=== PATIENT | male | born 1995 | race Caucasian/White ===

== ENCOUNTER → 2016-07-26 | Outpatient (CLI) | payer BC, MEDICAID ==
[2016-07-26 19:06] VITALS: BP 136/74
== END ==
LOC: MHUC 17:54
PROVIDERS: ATTEND Physician Assistant
DX: B36.0 Pityriasis versicolor (principal); R31.9 Hematuria, unspecified
CPT/HCPCS: 99213

== ENCOUNTER → 2016-07-26 | Outpatient (CLI) | payer BC, MEDICAID ==
[2016-07-26 19:05] LABS: ALBUMIN 5.3 g/dL (3.4-5.0); ANION GAP 16.5 MEQ/L (3-15); CALCULATED IONIZED CALCIUM 4.2 mg/dL (3.8-4.6); TOTAL PROTEIN 7.9 g/dL (6.4-8.5)
[2016-07-26 19:22] LABS: BASOPHILS % (AUTO) 1 % (0-2); EOSINOPHILS % (AUTO) 0 % (0-4); LYMPHOCYTES # (AUTO) 1.3 X10^3; MEAN CORPUSCULAR VOLUME 84 FL (80-100); MEAN PLATELET VOLUME 12.3 FL (6.0-9.5); MONOCYTES # (AUTO) 0.6 X10^3; MONOCYTES % (AUTO) 9 % (3-11); NEUTROPHILS # (AUTO) 4.8 X10^3; NEUTROPHILS % (AUTO) 71 % (51-67); PLATELET COUNT 203 10^3uL (150-450); WHITE BLOOD COUNT 6.79 10^3uL (4.0-11.0)
[2016-07-26 19:31] LABS: MEAN CORPUSCULAR HGB CONC 37.1 g/dL (31.0-37.0)
== END ==
LOC: LAB 18:37
PROVIDERS: ATTEND Physician Assistant
DX: R35.0 Frequency of micturition (principal)
CPT/HCPCS: 36415; 80053; 85025

== ENCOUNTER → 2016-10-19 | Emergency (ER) | payer BC, MEDICAID ==
[~2016-10-19] VITALS: Ht 177.8 cm; Wt 63.6 kg
[~2016-10-19] MED LIST: AMOX1TAB12 PO; HYDR-33 PO; KETOROLAC 60 MG/2 ML (TORADOL) VIAL IM ONE; SULF1TAB35 PO; TERB12CR3 TOP
--- OUTSIDE RECORDS SUMMARY | 2016-10-19 16:18 | XMS REPORT | Continuity of Care Document ---
Author Author [facility] Address Unknown Phone Unavailable Allergies Active Description Code Type Severity Reaction Onset Reported/Identified Relationship to Patient Clinical Status Yes No Known Drug Allergies [id number] Drug Allergy Unknown N/ A 12/17/2015 Medications Problems Date Dx Coded Attending Type Code Diagnosis Diagnosed By 10/12/2015 AIXA FUNES Ot J01.10 ACUTE FRONTAL SINUSITIS, UNSPECIFIED 10/13/2015 AIXA FUNES Ot J01.10 ACUTE FRONTAL SINUSITIS, UNSPECIFIED 11/23/2015 AIXA FUNES Ot J01.10 ACUTE FRONTAL SINUSITIS, UNSPECIFIED 12/17/2015 SHANAE RIVERS MD Ot S21.212A LAC W/O FB OF L BK WL OF THORAX W/O PENE 12/17/2015 SHANAE RIVERS MD Ot W01.10XA FALL SAME LEV FROM SLIP/TRIP W STRIKE AG 12/17/2015 SHANAE RIVERS MD Ot Y92.[address] [facility] [address] IN [facility] NON[facility] ( PRIVATE 12/19/2015 JUDY HADDAD MD Ot F17.210 NICOTINE DEPENDENCE, CIGARETTES, UNCOMPL 12/19/2015 JUDY HADDAD MD Ot S21.432A PNCTR W/O FB OF L BK WL OF THORAX W PENE 12/19/2015 JUDY HADDAD MD Ot S27.1XXA TRAUMATIC HEMOTHORAX, INITIAL ENCOUNTER 12/19/2015 JUDY HADDAD MD Ot W18.39XA OTHER FALL ON SAME LEVEL, INITIAL ENCOUN 12/22/2015 SHANAE RIVERS MD Ot S21.212A LAC W/O FB OF L BK WL OF THORAX W/O PENE 12/22/2015 SHANAE RIVERS MD Ot W01.10XA FALL SAME LEV FROM SLIP/TRIP W STRIKE AG 12/22/2015 SHANAE RIVERS MD Ot Y92.[address] [facility] [address] IN [facility] NON[facility] ( PRIVATE 12/28/2015 JUDY HADDAD MD Ot S27.1XXA TRAUMATIC HEMOTHORAX, INITIAL ENCOUNTER 12/30/2015 JUDY HADDAD MD Ot S27.1XXA TRAUMATIC HEMOTHORAX, INITIAL ENCOUNTER 01/02/2016 JUDY HADDAD MD Ot S27.1XXA TRAUMATIC HEMOTHORAX, INITIAL ENCOUNTER 01/02/2016 JUDY HADDAD MD Ot X58.XXXA EXPOSURE TO OTHER SPECIFIED FACTORS, INI 01/06/2016 Tono Bailon MD Ot J90 PLEURAL EFFUSION, NOT ELSEWHERE CLASSIFI 01/06/2016 Tono Bailon MD Ot R07.2 PRECORDIAL PAIN 01/09/2016 JUDY HADDAD MD, Ot S27.1XXA TRAUMATIC HEMOTHORAX, INITIAL ENCOUNTER 01/09/2016 JUDY HADDAD MD Ot X58.XXXA EXPOSURE TO OTHER SPECIFIED FACTORS, INI 01/12/2016 Tono Bailon MD, Ot J90 PLEURAL EFFUSION, NOT ELSEWHERE CLASSIFI 01/12/2016 Tono Bailon MD Ot R07.2 PRECORDIAL PAIN 01/14/2016 JUDY HADDAD MD Ot S27.1XXA TRAUMATIC HEMOTHORAX, INITIAL ENCOUNTER 01/14/2016 JUDY HADDAD MD, Ot S27.1XXA TRAUMATIC HEMOTHORAX, INITIAL ENCOUNTER 01/14/2016 JUDY HADDAD MD Ot X58.XXXA EXPOSURE TO OTHER SPECIFIED FACTORS, INI 01/19/2016 AIXA FUNES Ot J01.10 ACUTE FRONTAL SINUSITIS, UNSPECIFIED 01/19/2016 JUDY HADDAD MD, Ot S27.1XXA TRAUMATIC HEMOTHORAX, INITIAL ENCOUNTER 01/19/2016 JUDY HADDAD MD Ot S27.1XXA TRAUMATIC HEMOTHORAX, INITIAL ENCOUNTER 01/19/2016 JUDY HADDAD MD Ot X58.XXXA EXPOSURE TO OTHER SPECIFIED FACTORS, INI 01/19/2016 Tono Bailon MD Ot J90 PLEURAL EFFUSION, NOT ELSEWHERE CLASSIFI 01/19/2016 Tono Bailon MD Ot R07.2 PRECORDIAL PAIN 01/24/2016 Tono Bailon MD Ot J90 PLEURAL EFFUSION, NOT ELSEWHERE CLASSIFI 01/24/2016 Tono Bailon MD Ot R07.2 PRECORDIAL PAIN 03/08/2016 AIXA FUNES Ot J01.10 ACUTE FRONTAL SINUSITIS, UNSPECIFIED 03/08/2016 BOO [facility], JUDY Mars Ot S27.1XXA TRAUMATIC HEMOTHORAX, INITIAL ENCOUNTER 03/08/2016 JUDY HADDAD MD Ot S27.1XXA TRAUMATIC HEMOTHORAX, INITIAL ENCOUNTER 03/08/2016 JUDY HADDAD MD Ot X58.XXXA EXPOSURE TO OTHER SPECIFIED FACTORS, INI 03/08/2016 [employer], Tono Chan Ot J90 PLEURAL EFFUSION, NOT ELSEWHERE CLASSIFI 03/08/2016 Tono Bailon MD Ot R07.2 PRECORDIAL PAIN 03/29/2016 Tono Bailon MD Ot J90 PLEURAL EFFUSION, NOT ELSEWHERE CLASSIFI 03/29/2016 Tnoo Bailon MD Ot R07.2 PRECORDIAL PAIN 07/26/2016 Tono Bailon MD, Ot J90 PLEURAL EFFUSION, NOT ELSEWHERE CLASSIFI 07/26/2016 Tono Bailon MD Ot R07.2 PRECORDIAL PAIN 07/31/2016 SELCORBY WONGICA Jerad Ot R35.0 FREQUENCY OF MICTURITION 07/31/2016 CORBY FUNESICA Jerad Ot B36.0 PITYRIASIS VERSICOLOR 07/31/2016 CORBY FUNESICA D Ot R31.9 HEMATURIA, UNSPECIFIED 08/08/2016 Tono Bailon MD Ot J90 PLEURAL EFFUSION, NOT ELSEWHERE CLASSIFI 08/08/2016 Tono Bailon MD Ot R07.2 PRECORDIAL PAIN 08/08/2016 EFRA NOEL AIXA D Ot B36.0 PITYRIASIS VERSICOLOR 08/08/2016 CORBY FUNESICA D Ot R31.9 HEMATURIA, UNSPECIFIED 08/08/2016 Tono Bailon MD Ot J90 PLEURAL EFFUSION, NOT ELSEWHERE CLASSIFI 08/08/2016 Tono Bailon MD Ot R07.2 PRECORDIAL PAIN 08/08/2016 SELCORBY WONGICA D Ot B36.0 PITYRIASIS VERSICOLOR 08/08/2016 EFRA NOEL AIXA D Ot R31.9 HEMATURIA, UNSPECIFIED 08/08/2016 SELAZEB NOEL AIXA D Ot R35.0 FREQUENCY OF MICTURITION 08/08/2016 SELZER PA, AIXA D Ot B36.0 PITYRIASIS VERSICOLOR 08/08/2016 SELZER PA, AIXA D Ot R31.9 HEMATURIA, UNSPECIFIED 08/08/2016 SELZER PA, AIXA D Ot R35.0 FREQUENCY OF MICTURITION 08/09/2016 SELZER PA, AIXA D Ot B36.0 PITYRIASIS VERSICOLOR 08/09/2016 SELZER PA, AIXA D Ot R31.9 HEMATURIA, UNSPECIFIED 08/09/2016 SELZER PA, AIXA D Ot R35.0 FREQUENCY OF MICTURITION 08/16/2016 SELZER PA, AIXA D Ot B36.0 PITYRIASIS VERSICOLOR 08/16/2016 SELZER PA, AIXA D Ot R31.9 HEMATURIA, UNSPECIFIED 08/29/2016 SELZER PA, AIXA D Ot B36.0 PITYRIASIS VERSICOLOR 08/29/2016 SELZER BERT, AIXA D Ot R31.9 HEMATURIA, UNSPECIFIED 09/04/2016 SELZER BERT, AIXA D Ot R35.0 FREQUENCY OF MICTURITION 09/11/2016 EFRA NOEL AIXA D Ot J01.10 ACUTE FRONTAL SINUSITIS, UNSPECIFIED 09/11/2016 JUDY HADDAD MD Ot S27.1XXA TRAUMATIC HEMOTHORAX, INITIAL ENCOUNTER 09/11/2016 JUDY HADDAD MD Ot S27.1XXA TRAUMATIC HEMOTHORAX, INITIAL ENCOUNTER 09/11/2016 JUDY HADDAD MD Ot X58.XXXA EXPOSURE TO OTHER SPECIFIED FACTORS, INI 09/11/2016 [employer], Tono Chan Ot J90 PLEURAL EFFUSION, NOT ELSEWHERE CLASSIFI 09/11/2016 [employer], Tono Chan Ot R07.2 PRECORDIAL PAIN 09/11/2016 EFRA NOEL AIXA D Ot B36.0 PITYRIASIS VERSICOLOR 09/11/2016 JESSICAZER BERT AIXA D Ot R31.9 HEMATURIA, UNSPECIFIED 09/11/2016 SELZER BERT AIXA D Ot R35.0 FREQUENCY OF MICTURITION 09/13/2016 EFRA NOEL AIXA D Ot J01.10 ACUTE FRONTAL SINUSITIS, UNSPECIFIED 09/13/2016 JUDY HADDAD MD Ot S27.1XXA TRAUMATIC HEMOTHORAX, INITIAL ENCOUNTER 09/13/2016 JUDY HADDAD MD Ot S27.1XXA TRAUMATIC HEMOTHORAX, INITIAL ENCOUNTER 09/13/2016 JUDY HADDAD MD Ot X58.XXXA EXPOSURE TO OTHER SPECIFIED FACTORS, INI 09/13/2016 [employer], Tono Chan Ot J90 PLEURAL EFFUSION, NOT ELSEWHERE CLASSIFI 09/13/2016 Tono Bailon MD Ot R07.2 PRECORDIAL PAIN 09/13/2016 AIXA FUNES Ot B36.0 PITYRIASIS VERSICOLOR 09/13/2016 AIXA FUNES Ot R31.9 HEMATURIA, UNSPECIFIED 09/13/2016 AIXA FUNES Ot R35.0 FREQUENCY OF MICTURITION Procedures Code Description Performed By Performed On [id number] DRAINAGE OF L PLEURAL CAV WITH DRAIN DEV 12/17/2015 Results Test Result Range Complete blood count (CBC) with automated white blood cell (WBC) differential - 12/29/15 13:16 Blood automated leukocyte count 8.00 4.0 -11.0 Erythrocytes 3.28 4.50-5.50 12.0-16.0;g/dL 10.0 13.5-17.0 Hematocrit 28.80 39.00-50.00 Automated erythrocyte mean corpuscular volume 88 80-100 Mean corpuscular hemoglobin (MCH) determination 30.5 26.0-34.0 Automated erythrocyte mean corpuscular hemoglobin concentration measurement ( mass/volume) 34.7 31.0-37.0 Erythrocyte distribution width 12.6 11.8 -15.6 Automated blood platelet count 387 150- 450 Automated blood platelet mean volume measurement 10.1 6.0-9.5 Automated neutrophil percentage 66 51- 67 Lymphocytes/100 leukocytes 19 20-46 Automated monocyte percentage 10 3-11 Eosinophil count auto 4 0-4 Automated basophil percentage 1 0-2 Automated blood neutrophil count 5.2 Blood lymphocytes count (number/volume) 1.5 Automated blood monocyte count 0.8 Blood absolute eosinophil count 0.3 Basophils 0.1 Comprehensive metabolic panel - 07/26/16 18:41 Sodium measurement 103 70-110 CARBON DIOXIDE 28 22-29 Serum or plasma anion gap 16.5 3-15 BLOOD UREA NITROGEN 11 7-18 CREATININE SERUM 0.88 0.8-1.5 Brucella species antibody panel (IgG, IgM) 13 10-20 Estimated glomerular filtration rate (GFR) 133.6 Estimated glomerular filtration rate (GFR) non- 110.4 OSMOLALITY,CALCULATED 277 280-300 CALCIUM 10.2 8.8-10.8 Calculated ionized calcium measurement 4.2 3.8-4.6 BILIRUBIN,TOTAL 0.8 0.1-1.0 Serum or plasma alkaline phosphatase measurement 68 38-126 ASPARTATE AMINO TRANSFERASE 19 15-37 ALANINE AMINOTRANSFERASE 23 30-65 Serum or plasma total protein measurement 7.9 6.4-8.5 Serum or plasma albumin measurement 5.3 3.4-5.0 Serum or plasma albumin/globulin mass ratio 2.038 1.1-1.8 Complete blood count (CBC) with automated white blood cell (WBC) differential - 07/26/16 18:41 Blood automated leukocyte count 6.79 4.0 -11.0 Erythrocytes 5.33 4.50-5.50 12.0-16.0;g/dL 16.5 13.5-17.0 Hematocrit 44.50 39.00-50.00 Automated erythrocyte mean corpuscular volume 84 80-100 Mean corpuscular hemoglobin (MCH) determination 31.0 26.0-34.0 Automated erythrocyte mean corpuscular hemoglobin concentration measurement ( mass/volume) 37.1 31.0-37.0 Erythrocyte distribution width 12.7 11.8 -15.6 Automated blood platelet count 203 150- 450 Automated blood platelet mean volume measurement 12.3 6.0-9.5 Automated neutrophil percentage 71 51- 67 Lymphocytes/100 leukocytes 19 20-46 Automated monocyte percentage 9 3-11 Eosinophil count auto 0 0-4 Automated basophil percentage 1 0-2 Automated blood neutrophil count 4.8 Blood lymphocytes count (number/volume) 1.3 Automated blood monocyte count 0.6 Blood absolute eosinophil count 0.0 Basophils 0.0 Encounters ACCT No. Visit Date/Time Discharge Status Pt. Type Provider Facility Loc./Unit Complaint [id number] 12/17/2015 18:56:00 2015 17:32:00 DIS Inpatient BOO NGO, JUDY [facility] MED/SURG HEMOTHORAX, CHEST TUBE PLACEMENT [id number] 12/17/2015 02:48:00 2015 04:40:00 DIS Emergency SILVESTRE NGO, SHANAE [facility] ED [id number] 10/19/2016 16:15:00 ACT Emergency MARCELINO FARIAS, [facility] ED [id number] 10/19/2016 15:49:00 ACT Outpatient EFRA NOEL [facility] [id number] 07/26/2016 18:37:00 ACT Outpatient EFRA NOEL [facility] LAB [id number] 07/26/2016 17:54:00 ACT Outpatient EFRA NOEL [facility] [id number] 01/02/2016 14:31:00 ACT Outpatient Uvaldo NGO, [facility] RAD [id number] 12/29/2015 13:12:00 ACT Outpatient BOO NGO, [facility] LAB [id number] 12/23/2015 12:09:00 ACT Outpatient BOO NGO, [facility] RAD [id number] 10/10/2015 12:51:00 ACT Outpatient EFRA NOEL [facility]
--- OUTSIDE RECORDS SUMMARY | 2016-10-19 16:19 | XMS REPORT | Continuity of Care Document ---
Author Author [facility] Address Unknown Phone Unavailable Allergies Active Description Code Type Severity Reaction Onset Reported/Identified Relationship to Patient Clinical Status Yes No Known Drug Allergies [id number] Drug Allergy Unknown N/ A 12/17/2015 Medications [...] AG 12/17/2015 SHANAE RIVERS MD Ot Y92.[address] [facility] [address] IN [facility] NON[facility] ( PRIVATE 12/19/2015 JUDY HADDAD MD [...] AG 12/22/2015 SHANAE RIVERS MD Ot Y92.[address] [facility] [address] IN [facility] NON[facility] ( PRIVATE 12/28/2015 JUDY HADDAD MD [...] S27.1XXA TRAUMATIC HEMOTHORAX, INITIAL ENCOUNTER 03/08/2016 JUDY AHDDAD MD Ot S27.1XXA TRAUMATIC HEMOTHORAX, INITIAL ENCOUNTER 03/08/2016 JUDY HADDAD MD Ot X58.XXXA EXPOSURE TO OTHER SPECIFIED FACTORS, INI 03/08/2016 [employer], Tono Chan Ot J90 PLEURAL EFFUSION, NOT ELSEWHERE CLASSIFI 03/08/2016 Tono Bailon MD Ot R07.2 PRECORDIAL PAIN 03/29/2016 Tono Bailon MD Ot J90 PLEURAL EFFUSION, NOT ELSEWHERE CLASSIFI 03/29/2016 Tono Bailon MD Ot R07.2 PRECORDIAL PAIN 07/26/2016 [...] Procedures Code Description Performed By Performed On [id number] DRAINAGE OF L PLEURAL CAV WITH DRAIN [...] Status Pt. Type Provider Facility Loc./Unit Complaint [id number] 12/17/2015 18:56:00 2015 17:32:00 DIS Inpatient BOO NGO, JUDY [facility] MED/SURG HEMOTHORAX, CHEST TUBE PLACEMENT [id number] 12/17/2015 02:48:00 2015 04:40:00 DIS Emergency SILVESTRE NGO, SHANAE [facility] ED [id number] 10/19/2016 16:15:00 ACT Emergency MARCELINO FARIAS, [facility] ED [id number] 10/19/2016 15:49:00 ACT Outpatient EFRA NOEL [facility] [id number] 07/26/2016 18:37:00 ACT Outpatient EFRA NOEL [facility] LAB [id number] 07/26/2016 17:54:00 ACT Outpatient EFRA NOEL [facility] [id number] 01/02/2016 14:31:00 ACT Outpatient Uvaldo NGO, [facility] RAD [id number] 12/29/2015 13:12:00 ACT Outpatient BOO NGO, [facility] LAB [id number] 12/23/2015 12:09:00 ACT Outpatient BOO NGO, [facility] RAD [id number] 10/10/2015 12:51:00 ACT Outpatient EFRA NOEL [facility]
[2016-10-19 17:40] LABS: BILIRUBIN,URINE Negative (Negative); CLARITY,URINE Clear; COLOR,URINE Yellow; GLUCOSE, URINE (UA) Negative (Negative); LEUKOCYTE ESTERASE ,URINE Negative (Negative); UROBILINOGEN,URINE 0.2 mg/dL (0.2-1.0)
--- NOTE | 2016-10-19 17:40 | Diagnostic Imaging Report ---
INDICATION: Right-sided flank pain starting today. COMPARISON: None. DISCUSSION: Sonographic evaluation of the bilateral kidneys and urinary bladder was performed. The kidneys appear normal in echotexture and size bilaterally without evidence of hydronephrosis or renal mass. No shadowing stone identified. The right kidney measures 10.5 cm. The left kidney measures 11.1 cm. Urinary bladder is completely decompressed. IMPRESSION: 1. Normal sonographic appearance of the bilateral kidneys. Dictated by: Dictated on workstation # [id number]
--- NOTE | 2016-10-19 17:44 | Diagnostic Imaging Report ---
INDICATION: Right-sided scrotal pain starting today. COMPARISON: None. DISCUSSION: Sonographic evaluation of the scrotum was performed. The testicles appear normal and symmetric in echotexture and size bilaterally with normal color Doppler blood flow. The right testicle measures 3.9 x 2.5 x 3.0 cm. The left testicle measures 4.4 x 2.1 x 2.3 cm. The epididymides are unremarkable. No varicocele or hydrocele. The scrotal wall is unremarkable. IMPRESSION: 1. Unremarkable scrotal ultrasound. Dictated by: Dictated on workstation # [id number]
[2016-10-19 17:48] LABS: AMORPHOUS SEDIMENT,UR 1+ /HPF; RBC,URINE >100 /HPF; URINE CENTRIFUGED VOLUME 12 mL
--- NOTE | 2016-10-19 18:51 | NUR ---
urine collected in urgent care and hand carried to the ED by med personnel
[2016-10-19 18:54] VITALS: BP 133/77
== END | disposition home or self-care (01) ==
LOC: ED 16:15
DX: N45.1 Epididymitis (principal)
CPT/HCPCS: 76770; 76870; 81003; 81015; 96372; 99282; J1885; 99283

== ENCOUNTER → 2016-10-19 | Outpatient (CLI) | payer BC, MEDICAID ==
[~2016-10-19] MED LIST changes: -KETOROLAC 60 MG/2 ML (TORADOL) VIAL IM ONE
[2016-10-19 16:37] VITALS: BP 128/73
--- NOTE | 2016-10-19 16:37 | Urgent Care T Sheet Gen (E) ---
Intake General Temperature (Fahrenheit): 99.8 Pulse: 95 Blood Pressure Systolic: 128 Blood Pressure Diastolic: 73 Respirations: 18 SPO2: 96 Description of Symptoms Patient presents with R testicular pain which started suddenly this AM. States the R testicle is constantly painful and the pain worsens with walking/ standing. For the last 2 days, the patient has been vomiting. Denies any dysuria, suprapubic pain. History of Present Illness Allergies: Coded Allergies: No Known Drug Allergies (Unverified , 12/17/15) Home Meds Active Scripts Terbinafine (Lamisil AT 1% Cream)12 Gm Cream..g.1 Gm TOP BID #1 TUBE Apply topically to affected area BID x 1 week. Prov:AIXA KRAUS 07/26/16 Hydrocodone/Acetaminophen (ED- [place] 5/325mg #6)6 Tabs/Btl Tablet1-2 Tab PO Q6H PRN PAIN #25 TAB Ref 0 Prov:JUDY HADDAD MD 12/19/15 Respiratory Constitutional Symptoms: No syptoms reported Genitourinary: Pain All Other Systems Reviewed Remaining Systems: All other systems reviewed with negative findings Past Cngmitx-Chiyqv-Igswcx Hx Patient's Social History Alcohol Use: Occasionally Uses Smoking Status: Current every day smoker Infectious Disease Exposure: No Recent foreign travel: No Surgeries/Hospitalizations Hospitalization/Surgery Hx: right hand fx with amrit placement Respiratory Respiratory History: None Cardiovascular Cardiovascular History: None Neuro/Muscular Neuro/Muscular History: None Reproductive System Sexually Transmitted Diseases: No Genitouinary Genitourinary History: None Gastrointestinal GI/Endocrine History: None Diabetes Diabetes: No HEENT Impaired Vision: None Hearing Impaired: None Integumentary Integumentary History: None Cancer History of Cancer?: No Psychosocial Behavior Disorders: None Blood Transfusions Hx of Blood transfusions: No Physical Exam Physical Exam General Appearance: WD/WN Mild distress Comment normal Cremasteric reflex. R testicle is painful and swollen. Progress/Orders Lab Results Labs Results: UA UA Lab Results ph 7.0 Specific [place] 1.015 Protein trace Ketones - Blood 3+ Nitrates - Leukocyte Esterase trace Departure Urgent Care Impression Impression: Primary Impression: Testicle pain Departure Departed Disposition: To [facility] ED Condition: Stable Referrals: Tono Bailon MD (PCP) Additional Instructions: I have sent him to the ER for evaluation and treatment. Hopeful it's epididymitis or something along that line, but with his sudden onset of pain, I need to rule out torsion. Report called and given to Dr Chase. Urine was also sent to the ER in case they needed it for additional tests. UA done at showed 3+ blood and trace leukocytes. All questions were answered. Patient arrived to ER via private vehicle. End of report . AIXA KRAUS October 19, 2016 16:37
== END ==
LOC: MHUC 15:49
PROVIDERS: ATTEND Physician Assistant
DX: N50.811 Right testicular pain (principal)